=== PATIENT | male | born 1995 | race Caucasian/White ===

== ENCOUNTER 2023-08-26 06:47 | Emergency (ER) | payer MEDICAID ==
[~2023-08-26] VITALS: Ht 180.3 cm; Wt 130.0 kg
[2023-08-26 07:34] VITALS: BP 141/89; PULSE 87; TEMP 97.9
[2023-08-26] MEDS ORDERED: ALBUTEROL SULF 2.5 MG/0.5ML(0.5%) NEB SOLN NEB ONE (09:00)
[2023-08-26] MEDS ORDERED: IPRATROPIUM BROM 0.5 MG/2.5ML INH SOL NEB ONE (09:00)
[2023-08-26] MEDS ORDERED: methylPREDNISolone SOD SUCC 125 MG/2 ML VL IM ONE (09:00)
[2023-08-26 09:11] VITALS: RESP 18; O2SAT 92
[2023-08-26] MEDS ORDERED: PRED20TA2 PO (09:40)
[2023-08-26] MEDS ORDERED: FLUT1AER6 IN (09:40)
[2023-08-26] MEDS ORDERED: ALBUAER3 IN (09:47)
== END 2023-08-26 09:44 | disposition home or self-care (01) ==
LOC: ER 06:47
DX: J45.909 Unspecified asthma, uncomplicated (principal)
CPT/HCPCS: 71046; 94640; 96372; 99283; J2930; J7644